=== PATIENT | female | born 1985 | race Caucasian/White ===

== ENCOUNTER → 2020-06-20 | Outpatient (CLI) | payer BC ==
[~2020-06-20] MED LIST: BIRTH CONTROL; BIRTH CONTROL PILL; VICOPROFEN
== END ==
LOC: COL.RAD 12:31
DX: G43.009 Migraine without aura, not intractable, without status migrainosus (principal)

== ENCOUNTER 2021-01-02 14:55 | Emergency (ER) | payer BC ==
[~2021-01-02] VITALS: Ht 160 cm; Wt 90.9 kg
[2021-01-02 15:00] VITALS: BP 130/81; TEMP 97.3
[2021-01-02 16:13] VITALS: PULSE 79
== END 2021-01-02 16:13 | disposition home or self-care (01) ==
LOC: COL.ER 14:55
DX: H83.09 Labyrinthitis, unspecified ear (principal)

== ENCOUNTER → 2022-05-23 | Outpatient (CLI) | payer BC ==
[2022-05-23 18:06] LABS: BASO # 0.1 K/mm3 (0.0-0.2); EOS # 0.6 K/mm3 (0.0-0.7); EOS % 5.7 % (0.0-4.0); GRAN # 6.1 K/mm3 (1.4-6.5); GRAN % 56.6 % (42.2-75.2); HEMATOCRIT 40.5 % (37.0-47.0); HEMOGLOBIN 14.1 g/dl (12.5-16.0); LYMPH # 3.2 K/mm3 (1.2-3.4); LYMPH % 30.1 % (20.0-51.0); MEAN CELL VOLUME 88 fl (80.0-100.0); MEAN CORPUSCULAR HEMOGLOBIN 31 pg (27-31); MEAN CORPUSCULAR HGB CONC 35 g/dl (33.0-37.0); MEAN PLATELET VOLUME 10.6 fl (7.4-10.4); MONO # 0.7 K/mm3 (0.1-0.6); MONO % 6.2 % (1.7-9.3); PLATELET COUNT 297 K/mm3 (130-400); RED BLOOD COUNT 4.58 M/mm3 (4.10-5.30)
[2022-05-23 18:28] LABS: ALBUMIN 4.1 gm/dL (3.5-5.0); BILIRUBIN,TOTAL 0.3 mg/dL (0.2-1.2); CALCIUM 9.1 mg/dL (8.4-10.2); CREATININE, serum 0.99 mg/dL (0.57-1.11); POTASSIUM 3.7 mmol/L (3.5-4.5); TOTAL PROTEIN 7.3 gm/dL (6.2-8.1)
== END ==
LOC: COL.LAB 17:25
DX: R10.11 Right upper quadrant pain (principal)

== ENCOUNTER → 2022-12-31 | Outpatient (CLI) | payer BC | LOC: MHCPAIN 12:58 | DX: M54.81 Occipital neuralgia (principal); M54.12 Radiculopathy, cervical region; M25.512 Pain in left shoulder | CPT/HCPCS: G0463; J0665; J1040 ==

== ENCOUNTER → 2023-01-28 | Outpatient (CLI) | payer BC | LOC: MHCPAIN 09:21 | DX: M54.81 Occipital neuralgia (principal); M54.12 Radiculopathy, cervical region | CPT/HCPCS: G0463 ==